=== PATIENT | male | born 1990 | race Caucasian/White ===

== ENCOUNTER → 2016-06-05 | Outpatient (CLI) | payer BC | LOC: COL.RAD 13:07 | DX: M21.371 Foot drop, right foot (principal) ==

== ENCOUNTER → 2016-06-08 | Outpatient (REF) | LOC: WSOH 10:00 | DX: Z76.89 Persons encountering health services in other specified circumstances (principal) ==

== ENCOUNTER → 2016-06-08 | Outpatient (REF) | LOC: WSOH 09:42 → WSPT 10:15 | DX: Z02.1 Encounter for pre-employment examination (principal) ==